=== PATIENT | female | born 1950 | race Caucasian/White ===

== ENCOUNTER 2019-02-28 17:14 | Emergency (ER) | payer OTHER ==
[~2019-02-28] VITALS: Ht 157.5 cm; Wt 90.7 kg
[2019-02-28 17:18] VITALS: BP 116/47
--- NOTE | 2019-02-28 17:35 | NUR ---
PT BIB SELF TO THE ED WITH THE CHIEF C/O ABSCESS IN PRIVATE PART. PT REFUSED NURSE TO EVALUATE ABSCESS AT THIS TIME. PT WANTED ABSCESS TO BE EVALUATED BY DOCTOR. PT HAS BEEN VIVITING [facility] FOR ABSCESS DRAINAGE. TAKING ANTIBIOTICS. DOES NOT REMEMBER THE MEDICINE NAME. DENIES RECENT FEVER. DENIES ANY OTHER PROBLEM AT THIS TIME. DENIES PAIN. ER MD AWARE.
--- NOTE | 2019-02-28 18:14 | NUR ---
SPOKE TO DR. FORTE EARLIER, PARTNER OF DR. Chato MANSFIELD, THAT THEY ARE SENDING THIER PATIENT FOR FARTHER EVALUATION OF OF VALVULAR ABCESS/CELLULITIS., DR. FORTE NOTED 2 DEEP POCKETS/WOUND OPEN AND DRAINING.PATIENT BEEN ON ROCEPHINE AND CLINDAMYCIN WITH NO IMPROVEMENT AND PATIENT NON COMPLIANT WITH HER DIABETES. DR. FORTE STATED TO CALL DR. Chato MANSFIELD FOR DISPOSITION. DR. LANGLEY MADE AWARE OF THIS REPORT GIVEN BY DR. FORTE.
--- NOTE | 2019-02-28 18:41 | NUR ---
PT BEING EVALUATED BY ER AT THIS TIME.
--- NOTE | 2019-02-28 19:01 | NUR ---
Patient discharged with v/s stable. Written and verbal after care instructions given and explained. Patient verbalized understanding. Ambulatory with steady gait. All questions addressed prior to discharge. Advised to follow up with PMD.
[2019-02-28 19:02] VITALS: BP 122/59
== END 2019-02-28 19:01 | disposition home or self-care (01) ==
LOC: MED 17:14
DX: N75.1 Abscess of Bartholin's gland (principal); E11.9 Type 2 diabetes mellitus without complications; I10 Essential (primary) hypertension; Z90.49 Acquired absence of other specified parts of digestive tract; Z85.9 Personal history of malignant neoplasm, unspecified
CPT/HCPCS: 99283